=== PATIENT | female | born 1970 | race African-American/Black ===

== ENCOUNTER 2017-02-12 10:40 | Emergency (ER) | payer MEDICAID ==
[~2017-02-12] VITALS: Ht 154.9 cm; Wt 63.0 kg
[~2017-02-12 10:40] MED LIST: ATOR20TA PO; BANOPHEN PO; CYCL5TAB PO; FERR-63 PO; HYDR-3735 PO; LORA10TA7 PO; OMEP20CA10 PO; WARF3TAB27 PO
[2017-02-12 13:04] LABS: BASOPHILS % 0.4 % (0.0-2.0); HEMATOCRIT. 31.5 % (36.0-48.0); HEMOGLOBIN. 10.5 g/dL (12.0-16.0); MEAN CORPUSCULAR HEMOGLOBIN 27.3 pg (28.0-32.0); MEAN CORPUSCULAR VOLUME 81.9 fL (81.0-99.0); MONOCYTES % 7.9 % (2.0-8.0); NEUTROPHILS % 65.7 % (40.0-76.0); PLATELET 337 x1000/uL (130-400); RED BLOOD CELL COUNT 3.85 mill/uL (4.2-5.4); RED CELL DISTRIBUTION WIDTH 15.5 % (11.6-14.6)
[2017-02-12 13:11] LABS: HCG SCREEN NEGATIVE
[2017-02-12 13:12] LABS: INR 1.1; PROTHROMBIN TIME 11.4 sec (9.4-11.6)
[2017-02-12 13:20] LABS: CARBON DIOXIDE 30 mEq/L (21-32); CHLORIDE 105 mEq/L (98-107)
[2017-02-12] MEDS ORDERED: IOHEXOL-350 100 ML BOTTLE ONE (14:56)
[2017-02-12 15:15] VITALS: BP 122/70
== END 2017-02-12 15:17 | disposition home or self-care (01) ==
LOC: ER 10:40
DX: R07.9 Chest pain, unspecified (principal); R42 Dizziness and giddiness
CPT/HCPCS: 36415; 71275; 80053; 84703; 85025; 85610; 86850; 86900; 86901; 93005; 99285; Q9967

== ENCOUNTER 2017-10-22 11:58 | Emergency (ER) | payer MEDICAID ==
[~2017-10-22] VITALS: Ht 154.9 cm; Wt 59.0 kg
[~2017-10-22 11:58] MED LIST changes: +ASPI-1159 PO; -BANOPHEN PO; -CYCL5TAB PO; -HYDR-3735 PO; -LORA10TA7 PO; -WARF3TAB27 PO
[2017-10-22] MEDS ORDERED: SODIUM CHLORIDE 0.9% 1,000 ML IV ONE (12:39)
[2017-10-22 13:19] LABS: CHLORIDE 109 mEq/L (98-107)
[2017-10-22 13:23] LABS: INR 1.1; PROTHROMBIN TIME 11.7 sec (9.4-11.6)
[2017-10-22 13:28] LABS: HCG SCREEN NEGATIVE
[2017-10-22 13:29] LABS: *AMPHETAMINES SCREEN URINE NEGATIVE (NEGATIVE); *BARBITURATES SCREEN URINE NEGATIVE (NEGATIVE); *BENZODIAZEPINES SCREEN URINE NEGATIVE (NEGATIVE); *COCAINE SCREEN URINE NEGATIVE (NEGATIVE); METHADONE URINE SCREEN NEGATIVE (NEGATIVE); OPIATES URINE SCREEN NEGATIVE (NEGATIVE)
[2017-10-22 13:30] LABS: CANNABINOID URINE SCREEN NEGATIVE (NEGATIVE); PHENCYCLIDINE URINE SCREEN NEGATIVE (NEGATIVE)
[2017-10-22 13:34] LABS: BASOPHILS % 0.7 % (0.0-2.0); HEMATOCRIT. 28.3 % (36.0-48.0); HEMOGLOBIN. 9.5 g/dL (12.0-16.0); LYMPHOCYTES % 26.6 % (20.0-50.0); MEAN CORPUSCULAR HEMOGLOBIN 27.9 pg (28.0-32.0); MEAN CORPUSCULAR VOLUME 83.1 fL (81.0-99.0); MEAN PLATELET VOLUME 7.4 fl (7.4-10.4); MONOCYTES % 11.1 % (2.0-8.0); NEUTROPHILS % 58.6 % (40.0-76.0); PLATELET 278 x1000/uL (130-400); RED BLOOD CELL COUNT 3.41 mill/uL (4.2-5.4); RED CELL DISTRIBUTION WIDTH 16.1 % (11.6-14.6)
[2017-10-22 15:23] VITALS: BP 115/59
== END 2017-10-22 15:30 | disposition home or self-care (01) ==
LOC: ER 11:58
DX: J18.9 Pneumonia, unspecified organism (principal); I10 Essential (primary) hypertension; G43.909 Migraine, unspecified, not intractable, without status migrainosus; I20.9 Angina pectoris, unspecified; Z79.82 Long term (current) use of aspirin
CPT/HCPCS: 36415; 71045; 80053; 80305; 83690; 83880; 84484; 84703; 85025; 85610; 85730; 93005; 99285; J7030; Z7610

== ENCOUNTER 2018-12-28 12:57 | Inpatient (IN) | payer MEDICAID ==
[~2018-12-28] VITALS: Ht 154.9 cm; Wt 57.6 kg
[~2018-12-28 12:57] MED LIST changes: -ASPI-1159 PO; +ASPI-1393 PO; -OMEP20CA10 PO; +OMEP20CA5 PO
[2018-12-28] MEDS ORDERED: MORPHINE SULFATE 4 MG/ML CPJ (NOT FOR IM USE) IV STA (15:26)
[2018-12-28 15:46] LABS: BASOPHILS % 0.3 % (0.0-2.0); EOSINOPHILS % 1.5 % (0.0-5.0); HEMATOCRIT. 29.9 % (36.0-48.0); LYMPHOCYTES % 23.1 % (20.0-50.0); MEAN CORPUSCULAR HEMOGLOBIN 28.1 pg (28.0-32.0); MEAN CORPUSCULAR VOLUME 84.2 fL (81.0-99.0); MEAN PLATELET VOLUME 7.5 fl (7.4-10.4); MONOCYTES % 8.7 % (2.0-8.0); NEUTROPHILS % 66.4 % (40.0-76.0); PLATELET 241 x1000/uL (130-400); RED BLOOD CELL COUNT 3.55 mill/uL (4.2-5.4); RED CELL DISTRIBUTION WIDTH 15.2 % (11.6-14.6)
[2018-12-28 15:52] LABS: CHLORIDE 110 mEq/L (98-107)
[2018-12-28] MEDS ORDERED: ACETAMINOPHEN 325MG TABLET PO ONE (16:15)
[2018-12-28] MEDS ORDERED: ASPIRIN 325MG EC TABLET PO ONE (16:45)
[2018-12-28] MEDS ORDERED: PANTOPRAZOLE 40MG DR TABLET PO SCH (20:45)
[2018-12-28] MEDS ORDERED: DOCUSATE SODIUM 100MG CAPSULE PO PRN (20:45)
[2018-12-28] MEDS ORDERED: LORAZEPAM 0.5MG TABLET PO PRN (20:45)
[2018-12-28] MEDS ORDERED: ACETAMINOPHEN 325MG TABLET PO PRN (20:45)
[2018-12-28] MEDS ORDERED: CLONIDINE 0.1MG TABLET PO PRN (20:45)
[2018-12-28] MEDS ORDERED: ONDANSETRON HCL 4MG/2ML INJ IV PRN (20:45)
[2018-12-28] MEDS ORDERED: IPRATROPIUM/ALBUTEROL 0.5-3(2.5)MG/3ML NEB INH PRN (20:45)
[2018-12-28] MEDS ORDERED: SUCRALFATE 1G TABLET PO SCH (21:00)
[2018-12-28 22:08] LABS: CREATINE KINASE MB FRACTION 1.4 ng/mL (0.5-3.6)
[2018-12-29] VITALS (8 sets, daily range): BP systolic 96–132; BP diastolic 43–80
[2018-12-29] MEDS: HYDROCODONE/ACETAMINOPHEN 5/325MG TABLET PO PRN ×2 (04:27→22:43)
[2018-12-29] MEDS: SUCRALFATE 1G TABLET PO SCH ×4 (06:45→20:44)
[2018-12-29] MEDS: PANTOPRAZOLE 40MG DR TABLET PO SCH (06:45)
[2018-12-29 08:08] LABS: BASOPHILS % 0.7 % (0.0-2.0); EOSINOPHILS % 2.1 % (0.0-5.0); HEMATOCRIT. 29.9 % (36.0-48.0); HEMOGLOBIN. 9.8 g/dL (12.0-16.0); MEAN CORPUSCULAR HEMOGLOBIN 27.7 pg (28.0-32.0); MEAN CORPUSCULAR VOLUME 84.2 fL (81.0-99.0); MEAN PLATELET VOLUME 7.8 fl (7.4-10.4); MONOCYTES % 11.6 % (2.0-8.0); NEUTROPHILS % 58.6 % (40.0-76.0); PLATELET 215 x1000/uL (130-400); RED BLOOD CELL COUNT 3.55 mill/uL (4.2-5.4); RED CELL DISTRIBUTION WIDTH 14.9 % (11.6-14.6)
[2018-12-29 08:30] LABS: CHLORIDE 108 mEq/L (98-107)
[2018-12-29] MEDS ORDERED: REGADENOSON 0.4 MG/5 ML IV ONE ×2 (11:00→13:01)
[2018-12-29] MEDS ORDERED: POTASSIUM CHLORIDE 20MEQ TABLET SR PO NR (11:00)
[2018-12-29 13:33] LABS: *AMPHETAMINES SCREEN URINE NEGATIVE (NEGATIVE); *BARBITURATES SCREEN URINE NEGATIVE (NEGATIVE); *BENZODIAZEPINES SCREEN URINE NEGATIVE (NEGATIVE); *COCAINE SCREEN URINE NEGATIVE (NEGATIVE); METHADONE URINE SCREEN NEGATIVE (NEGATIVE); OPIATES URINE SCREEN PRESUMTIVE POSITIVE (NEGATIVE)
[2018-12-29 13:34] LABS: CANNABINOID URINE SCREEN NEGATIVE (NEGATIVE); PHENCYCLIDINE URINE SCREEN NEGATIVE (NEGATIVE)
[2018-12-30] VITALS: BP 108/57
[2018-12-30 04:00] VITALS: BP 85/48
[2018-12-30] MEDS: SUCRALFATE 1G TABLET PO SCH ×4 (05:55→21:33)
[2018-12-30] MEDS: PANTOPRAZOLE 40MG DR TABLET PO SCH (05:55)
[2018-12-30 06:26] LABS: BASOPHILS % 0.6 % (0.0-2.0); EOSINOPHILS % 2.7 % (0.0-5.0); HEMATOCRIT. 32.2 % (36.0-48.0); HEMOGLOBIN. 10.7 g/dL (12.0-16.0); LYMPHOCYTES % 28.6 % (20.0-50.0); MEAN CORPUSCULAR HEMOGLOBIN 27.9 pg (28.0-32.0); MEAN CORPUSCULAR VOLUME 83.9 fL (81.0-99.0); MEAN PLATELET VOLUME 7.9 fl (7.4-10.4); MONOCYTES % 9.5 % (2.0-8.0); NEUTROPHILS % 58.6 % (40.0-76.0); PLATELET 247 x1000/uL (130-400); RED BLOOD CELL COUNT 3.83 mill/uL (4.2-5.4); RED CELL DISTRIBUTION WIDTH 15.4 % (11.6-14.6)
[2018-12-30 06:46] LABS: CHLORIDE 107 mEq/L (98-107)
[2018-12-30 08:20] VITALS: BP 108/54
[2018-12-30 12:00] VITALS: BP 129/58
[2018-12-30 16:00] VITALS: BP 116/61
[2018-12-30 20:00] VITALS: BP 113/55
[2018-12-30] MEDS ORDERED: ATORVASTATIN CALCIUM 20MG TABLET PO SCH (21:00)
[2018-12-31] VITALS: BP 94/49
[2018-12-31 04:00] VITALS: BP 105/55
[2018-12-31] MEDS: SUCRALFATE 1G TABLET PO SCH (05:50)
[2018-12-31 08:37] VITALS: BP 115/58
[2018-12-31] MEDS ORDERED: FAMOTIDINE 20MG TABLET PO SCH (09:00)
== END 2018-12-31 10:41 | disposition home or self-care (01) | DRG 203 ==
LOC: ER 12:57 → 5WST 17:23 → ENRESERV 22:52
PROVIDERS: ADMIT Internal Medicine; ATTEND Internal Medicine
DX: R07.89 Other chest pain (principal); I11.9 Hypertensive heart disease without heart failure; D50.9 Iron deficiency anemia, unspecified; E78.5 Hyperlipidemia, unspecified; G43.909 Migraine, unspecified, not intractable, without status migrainosus; J45.909 Unspecified asthma, uncomplicated; K21.9 Gastro-esophageal reflux disease without esophagitis; R00.1 Bradycardia, unspecified; D63.8 Anemia in other chronic diseases classified elsewhere; E78.00 Pure hypercholesterolemia, unspecified; Z79.82 Long term (current) use of aspirin; Z82.49 Family history of ischemic heart disease and other diseases of the circulatory system; Z86.711 Personal history of pulmonary embolism; Z86.718 Personal history of other venous thrombosis and embolism
CPT/HCPCS: 36415; 71045; 78452; 78582; 80048; 80061; 80305; 82550; 82553; 82728; 83036; 83540; 83550; 83735; 83880; 84443; 84484; 85379; 93005; 93017; 93306; 93970; 97161; 99285; A9500; A9558; J2785

== ENCOUNTER 2022-09-30 10:26 | Inpatient (IN) | payer MEDICAID, OTHER ==
[~2022-09-30] VITALS: Ht 152.4 cm; Wt 49.9 kg
[~2022-09-30 10:26] MED LIST changes: -ASPI-1393 PO; -FERR-63 PO; -OMEP20CA5 PO
[2022-09-30] MEDS ORDERED: PREDNISONE 20MG TABLET PO STA (10:37)
[2022-09-30] MEDS ORDERED: ALBUTEROL (0.083%) 2.5MG/3ML NEB HHN STA (10:37)
[2022-09-30] MEDS ORDERED: IPRATROPIUM BROMIDE (0.02%) 0.5MG/2.5ML NEB HHN STA (10:37)
[2022-09-30 10:51] LABS: BASOPHILS % 0.7 % (0.0-2.0); EOSINOPHILS % 1.7 % (0.0-5.0); HEMATOCRIT. 32.3 % (36.0-48.0); HEMOGLOBIN. 10.5 g/dL (12.0-16.0); MEAN CORPUSCULAR HEMOGLOBIN 24.5 pg (28.0-32.0); MEAN PLATELET VOLUME 6.6 fl (7.4-10.4); MONOCYTES % 5.8 % (2.0-8.0); NEUTROPHILS % 68.8 % (40.0-76.0); PLATELET 475 x1000/uL (130-400); RED BLOOD CELL COUNT 4.31 mill/uL (4.2-5.4); RED CELL DISTRIBUTION WIDTH 18.9 % (11.6-14.6)
[2022-09-30 11:10] LABS: CHLORIDE 106 mEq/L (98-107)
[2022-09-30 13:39] LABS: CLARITY URINE CLEAR (CLEAR); COLOR URINE DARK YELLOW (YELLOW); KETONES URINE 2+ (NEGATIVE); LEUKOCYTE ESTERASE URINE TRACE (NEGATIVE); NITRITE URINE NEGATIVE (NEGATIVE); OCCULT BLOOD URINE NEGATIVE (NEGATIVE); PROTEIN URINE 1+ (NEGATIVE); SPECIFIC GRAVITY URINE 1.018 (1.005-1.030); UROBILINOGEN URINE 0.2 E.U./dL (0.2-1.0)
[2022-09-30] MEDS ORDERED: IOHEXOL-350 100 ML BOTTLE ONE (14:27)
[2022-09-30 14:44] LABS: HCG SCREEN NEGATIVE
[2022-09-30 17:40] VITALS: BP 108/62
[2022-09-30] MEDS ORDERED: IPRATROPIUM/ALBUTEROL 0.5-3(2.5)MG/3ML NEB HHN PRN (18:45)
[2022-09-30 20:00] VITALS: BP 110/64
[2022-09-30] MEDS: METHYLPREDNISOLONE SOD SUCC 40 MG/ML VIAL IV SCH (22:51)
[2022-10-01] VITALS: BP 110/64
[2022-10-01 04:00] VITALS: BP 107/57
[2022-10-01] MEDS: METHYLPREDNISOLONE SOD SUCC 40 MG/ML VIAL IV SCH (06:46)
[2022-10-01 08:00] VITALS: BP 119/78
[2022-10-01 12:00] VITALS: BP 120/74
[2022-10-01 13:41] LABS: VITAMIN B12 SERUM 1059 pg/mL (211-911)
[2022-10-01] MEDS: PREDNISONE 5MG TABLET PO SCH (15:00)
[2022-10-01 16:00] VITALS: BP 124/76
[2022-10-01 19:17] LABS: FERRITIN 102 ng/mL (10-291)
[2022-10-01 20:00] VITALS: BP 121/62
[2022-10-01] MEDS: BUDESONIDE 0.5MG/2ML NEB HHN SCH (21:39)
[2022-10-02 04:00] VITALS: BP 134/69
[2022-10-02 08:00] VITALS: BP_SYST 109; BP_DIAS 53; BP_DIAS 56
[2022-10-02] MEDS: PREDNISONE 5MG TABLET PO SCH (08:27)
[2022-10-02] MEDS: IPRATROPIUM BROMIDE (0.02%) 0.5MG/2.5ML NEB HHN SCH ×2 (08:30→16:28)
[2022-10-02] MEDS: BUDESONIDE 0.5MG/2ML NEB HHN SCH (08:30)
[2022-10-02] MEDS: ALBUTEROL (0.083%) 2.5MG/3ML NEB HHN SCH ×2 (08:30→16:28)
[2022-10-02 12:00] VITALS: BP 96/56
[2022-10-02] MEDS ORDERED: PRED5TAB PO (13:05)
[2022-10-02 16:00] VITALS: BP 111/60
[2022-10-02 18:37] VITALS: BP 111/60
== END 2022-10-02 19:43 | disposition home or self-care (01) | DRG 141 ==
LOC: ER 10:44 → 6EST 14:36 → EDBEDREQ 14:55 → EDBEDREQSVC 14:55 → EDBEDREQTM 14:55 → ENRESERV 16:43
PROVIDERS: ADMIT Internal Medicine; ATTEND Internal Medicine
DX: J45.901 Unspecified asthma with (acute) exacerbation (principal); J96.00 Acute respiratory failure, unspecified whether with hypoxia or hypercapnia; E44.1 Mild protein-calorie malnutrition; J84.9 Interstitial pulmonary disease, unspecified; M32.9 Systemic lupus erythematosus, unspecified; Z68.21 Body mass index [BMI] 21.0-21.9, adult; I10 Essential (primary) hypertension; D50.9 Iron deficiency anemia, unspecified; H54.7 Unspecified visual loss; M19.90 Unspecified osteoarthritis, unspecified site; Z86.711 Personal history of pulmonary embolism; Z59.00 Homelessness unspecified; Z86.718 Personal history of other venous thrombosis and embolism; Z91.199 Patient's noncompliance with other medical treatment and regimen due to unspecified reason
CPT/HCPCS: 36415; 71045; 71275; 80053; 80061; 81003; 82607; 82728; 82746; 83036; 83540; 83550; 83880; 84443; 84484; 84703; 85025; 85379; 93005; 93971; 94640; 97162; 99291; J2920; J7512; J7626; Q9967